=== PATIENT | female | born 1965 | race Caucasian/White ===

== ENCOUNTER 2016-10-14 14:26 | Emergency (ER) | payer BC ==
--- NOTE | 2016-10-14 15:47 | CPEKG ---
Heart Rate: 78 RR Interval: 769 P-R Interval: 140 QRSD Interval: 90 QT Interval: 400 QTC Interval: 456 P Munden: 56 QRS Munden: 6 T Wave Munden: 54 EKG Severity - NORMAL ECG - EKG Impression: SINUS RHYTHM Electronically Signed By: Raulito Groves 14-Oct-2016 21:47:56
[2016-10-14] MEDS ORDERED: NS 1,000 ML IV ONE (16:08)
[2016-10-14 16:17] LABS: % IMMATURE GRANULYOCYTES 0.5 % (0.0-1.1); ABSOLUTE IMMATURE GRANULOCYTES 0.03 10^3/uL (0.00-0.10); ADD DIFF? NO; ADD MORPH? NO; ADD SCAN? NO; ATYPICAL LYMPHOCYTE FLAG 0 (0-99); FRAGMENT RBC FLAG 0 (0-99); HEMATOCRIT 42.7 % (38.0-47.0); HEMOGLOBIN 14.4 g/dL (12.6-16.3); LEFT SHIFT FLG 0 (0-99); LIPEMIA HEMOLYSIS FLAG 80 (0-99); MEAN CELL HEMOGLOBIN 29.8 pg (27.9-34.1); MEAN CELL HEMOGLOBIN CONCENTR. 33.7 g/dL (32.4-36.7); MEAN CELL VOLUME 88.2 fL (81.5-99.8); PLATELET CLUMPS FLAG 0 (0-99); PLATELET COUNT 264 10^3/uL (150-400); RED BLOOD CELL COUNT 4.84 10^6/uL (4.18-5.33); RED CELL DISTRIBUTION WIDTH 14.1 % (11.5-15.2)
[2016-10-14 16:30] LABS: ANION GAP 10 mEq/L (8-16); CALCIUM 9.2 mg/dL (8.5-10.4); CARBON DIOXIDE 23 mEq/l (22-31); CHLORIDE 107 mEq/L (97-110); CREATININE 0.8 mg/dL (0.6-1.0); GLOMERULAR FILTRATION RATE > 60; GLUCOSE 98 mg/dL (70-100); MAGNESIUM 2.3 mg/dL (1.6-2.3); POTASSIUM 4.2 mEq/L (3.5-5.2); SODIUM 140 mEq/L (134-144)
[2016-10-14 16:40] VITALS: RESP 18; O2SAT 94
[2016-10-14 16:41] LABS: TROPONIN I < 0.012 ng/mL (0-0.034)
--- NOTE | 2016-10-14 17:16 | EDPHY ---
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 - Personal History LMP (Females 10-55): 22-28 Days Ago Current Tetanus/Diphtheria Vaccine: Unsure Current Tetanus Diphtheria and Acellular Pertussis (TDAP): Unsure - Medical/Surgical History Hx Asthma: No Hx Chronic Respiratory Disease: No Hx Diabetes: No Hx Cardiac Disease: No Hx Renal Disease: No Hx Cirrhosis: No Hx Alcoholism: No Hx HIV/AIDS: No Hx Splenectomy or Spleen Trauma: No Other PMH: denies - Social History Smoking Status: Never smoked Time Seen by Provider: 10/14/16 15:15 HPI/ROS: Chief complaint: Palpitations History of present illness: This is a 50-year-old female who presents to the emergency department for evaluation of palpitations. Patient reports the onset of symptoms yesterday. Patient is visiting from [place]. She has been skiing in [place], [place]. She has been skiing for the last week without problems. However yesterday she woke feeling unwell describing generalized malaise. She went out skiing and developed palpitations. She states at that time she felt lightheaded like she was going to pass out although she never actually did. She had some shortness of breath. She stopped skiing early and ended up sleeping for most of the day. Symptoms did recur last night evening. Patient and family drove down to [place] today. While in [place] symptoms recurred with palpitations and feeling like she was going to pass out. She went to urgent care and was referred here. She denies specific precipitating factors. She denies alleviating factors. She denies other associated signs or symptoms including no chest pain, no cough, no headache, no paresthesias, no weakness or paralysis, no bowel or bladder dysfunction, no pain or swelling in the legs, no trauma. Review of systems: A 10 point review of systems was obtained and other than described above was negative (Bubba Willoughby) - Physical Exam Exam: General Appearance: Alert, nontoxic. Eyes: Pupils equal and round no pallor or injection. ENT, Mouth: Mucous membranes moist. Respiratory: There are no retractions, lungs are clear to auscultation. Cardiovascular: Regular rate and rhythm. Gastrointestinal: Abdomen is soft and nontender, no masses, bowel sounds normal. Neurological: Alert and oriented x4. Cranial nerves 2-12 grossly intact. Strength and sensation intact and symmetrical. Patient is ambulating well without difficulty. Skin: Warm and dry, no rashes. Musculoskeletal: Neck is supple nontender. Extremities are symmetrical, full range of motion. Psychiatric: Patient is oriented X 3, there is no agitation. (Bubba Willoughby) Constitutional: Initial Vital Signs Temperature (C) 36.5 C 10/14/16 14:31 Heart Rate 98 10/14/16 14:31 Respiratory Rate 16 10/14/16 14:31 Blood Pressure 151/91 H 10/14/16 14:31 O2 Sat (%) 97 10/14/16 14:31 O2 Delivery Mode Room Air Allergies/Adverse Reactions: No Known Allergies Allergy (Unverified 10/14/16 14:29) Home Medications: Medication Instructions Recorded Rebekah Intensive Relief Cream 10/14/16 Medical Decision Making - Diagnostics EKG Interpretation: EKG interpreted by me shows normal sinus rhythm with normal interval and axis. QRS is normal there is no significant ST elevation or depression. There is no arrhythmia. The rate is 78 (Raulito Groves) Imaging: Chest x-ray unremarkable (Bubba Willoughby) ED Course/Re-evaluation: Patient is discussed with my secondary supervising physician Dr. Raulito Groves. Patient presents to the emergency department with intermittent palpitations. On presentation patient is nontoxic. She is afebrile and vital signs are stable. Physical exam is unremarkable. Blood studies, EKG and chest x-ray are unremarkable. She is IV hydrated. On re-evaluation she feels fine, she is asymptomatic. At this time I do not appreciate need for further emergency department intervention or inpatient management. Patient is discharged. She is asked to follow up with her primary care doctor this week when she returns home to [place]. Home care is discussed. Strict return precautions are given. Patient voiced understanding and agreement with plan. (Bubba Willoughby) I did not see this patient while she was in the emergency department. However her care was discussed with the PA while the patient was in the department. I agree with treatment plan and management (Raulito Groves) Differential Diagnosis: Included but not limited to altitude illness, dehydration, anemia, electrolyte disturbances, cardiac dysrhythmias, ACS, PE, infectious pathology including pneumonia, thyroid disorders (Bubba Willoughby) - Data Points Laboratory Results: Laboratory Results 10/14/16 15:48 10/14/16 15:48 10/14/16 10/14/16 10/14/16 15:48 15:48 15:48 WBC RBC Hgb Hct MCV MCH MCHC RDW Plt Count MPV Neut % (Auto) Lymph % (Auto) Morris % (Auto) Eos % (Auto) Baso % (Auto) Nucleat RBC Rel Count Absolute Neuts (auto) Absolute Lymphs (auto) Absolute Monos (auto) Absolute Eos (auto) Absolute Basos (auto) Absolute Nucleated RBC Immature Gran % Immature Gran # D-Dimer 0.33 ug/mLFEU ug/mLFEU (0.00-0.50) Sodium 140 mEq/L mEq/L (134-144) Potassium 4.2 mEq/L mEq/L (3.5-5.2) Chloride 107 mEq/L mEq/L (97-110) Carbon Dioxide 23 mEq/l mEq/l (22-31) Anion Gap 10 mEq/L mEq/L (8-16) BUN 15 mg/dL mg/dL (7-23) Creatinine 0.8 mg/dL mg/dL (0.6-1.0) Estimated GFR > 60 Glucose 98 mg/dL mg/dL (70-100) Calcium 9.2 mg/dL mg/dL (8.5-10.4) Magnesium 2.3 mg/dL mg/dL (1.6-2.3) Troponin I < 0.012 ng/mL ng/mL (0-0.034) TSH 1.770 uIU/mL uIU/mL (0.465-4.680) Beta HCG, Qual NEGATIVE 10/14/16 15:48 WBC 5.76 10^3/uL 10^3/uL (3.80-9.50) RBC 4.84 10^6/uL 10^6/uL (4.18-5.33) Hgb 14.4 g/dL g/dL (12.6-16.3) Hct 42.7 % % (38.0-47.0) MCV 88.2 fL fL (81.5-99.8) MCH 29.8 pg pg (27.9-34.1) MCHC 33.7 g/dL g/dL (32.4-36.7) RDW 14.1 % % (11.5-15.2) Plt Count 264 10^3/uL 10^3/uL (150-400) MPV 9.0 fL fL (8.7-11.7) Neut % (Auto) 58.1 % % (39.3-74.2) Lymph % (Auto) 31.8 % % (15.0-45.0) Morris % (Auto) 7.5 % % (4.5-13.0) Eos % (Auto) 1.2 % % (0.6-7.6) Baso % (Auto) 0.9 % % (0.3-1.7) Nucleat RBC Rel Count 0.0 % % (0.0-0.2) Absolute Neuts (auto) 3.35 10^3/uL 10^3/uL (1.70-6.50) Absolute Lymphs (auto) 1.83 10^3/uL 10^3/uL (1.00-3.00) Absolute Monos (auto) 0.43 10^3/uL 10^3/uL (0.30-0.80) Absolute Eos (auto) 0.07 10^3/uL 10^3/uL (0.03-0.40) Absolute Basos (auto) 0.05 10^3/uL 10^3/uL (0.02-0.10) Absolute Nucleated RBC 0.00 10^3/uL 10^3/uL (0-0.01) Immature Gran % 0.5 % % (0.0-1.1) Immature Gran # 0.03 10^3/uL 10^3/uL (0.00-0.10) D-Dimer Sodium Potassium Chloride Carbon Dioxide Anion Gap BUN Creatinine Estimated GFR Glucose Calcium Magnesium Troponin I TSH Beta HCG, Qual Medications Given: Discontinued Medications Sodium Chloride (Ns) 1,000 mls @ 0 mls/hr IV ONCE ONE PRN Reason: Wide Open Stop: 10/14/16 16:09 Last Admin: 10/14/16 16:15 Dose: 1,000 mls Departure - Departure Disposition: Home, Routine, Self-Care Clinical Impression: Palpitations Condition: Good Instructions: Palpitations (ED) Additional Instructions: Follow-up with your primary care doctor when you return home If symptoms worsen or new symptoms develop return to the emergency department for recheck Referrals: DEMETRI PRUETT [Other] - As per Instructions
[2016-10-14 17:39] VITALS: BP 150/95; PULSE 78; TEMP 98.2
== END 2016-10-14 17:39 | disposition home or self-care (01) ==
DX: R00.2 Palpitations (principal)